=== PATIENT | male | born 1975 | race African-American/Black ===

== ENCOUNTER 2022-08-31 11:09 | Emergency (ER) | payer OTHER ==
[~2022-08-31] VITALS: Ht 172.7 cm; Wt 100.0 kg
[2022-08-31 11:14] VITALS: BP 137/86
[2022-08-31 11:27] LABS: Basophils # (auto) 0 10 ^3/uL (0-0.2); Eosinophils # (auto) 0.1 10 ^3/uL (0-0.8); Hemoglobin 14.9 g/dL (13.5-17.5); Mean Corpuscular Hemoglobin 26.2 pg (28.0-32.0); Monocytes # (auto) 0.3 10 ^3/uL (0-1.3)
[2022-08-31 11:29] LABS: Basophils % (auto) 0.3 % (0.0-2.0); Eosinophils % (auto) 1.8 % (0.0-7.0); Hematocrit 45.4 % (41.0-53.0); Lymphocytes # (auto) 1.8 10 ^3/uL (0.4-5.4); Lymphocytes % (auto) 35.2 % (10.0-50.0); Mean Corpuscular Hgb Conc. 32.9 g/dL (32.0-36.0); Mean Corpuscular Volume 79.7 fL (80.0-100.0); Neutrophils # (auto) 2.8 10 ^3/uL (1.6-8.6); Neutrophils % (auto) 56.7 % (37.0-80.0); Nucleated Red Blood Cells % 0.4 %; Red Cell Distribution Width 14.5 % (11.8-14.3)
[2022-08-31 12:12] LABS: Albumin 4.4 g/dL (3.4-5.0); Calcium 8.9 mg/dL (8.5-10.1)
[2022-08-31 12:15] LABS: BUN/Creatinine Ratio 9.1 (10.0-20.0); Bilirubin, Total 0.3 mg/dL (0.2-1.0); Total Protein 7.9 g/dL (6.4-8.2)
[2022-08-31] MEDS ORDERED: ASPirin 325 MG TAB PO ONE (16:45)
[2022-08-31] MEDS ORDERED: NITROGLYCERIN 0.4 MG SL TAB SL ONE (16:45)
== END 2022-08-31 17:30 | disposition home or self-care (01) ==
LOC: ER 11:09
DX: I24.9 Acute ischemic heart disease, unspecified (principal)
CPT/HCPCS: 36415; 71045; 80053; 84484; 85025; 85379; 93005